=== PATIENT | male | born 1945 | race Hispanic/Latino ===

== ENCOUNTER 2017-08-15 10:24 | Day surgery (SDC) | payer MEDICARE ==
[~2017-08-15 10:24] MED LIST: ANCEF/STERILE WATER 2 GM/20 ML 2 GM/20 ML SYRINGE IV NR; NACL 0.9% 1000 ML 1,000 ML IV SCH
[2017-08-15] MEDS ORDERED: NACL BACTERIOSTATIC INFILTRATI ONE (10:48)
[2017-08-15] MEDS ORDERED: NEO SYNEPHRINE/NS Syringe(OR USE) IV ONE (11:00)
[2017-08-15 11:41] LABS: Calcium 9.2 mg/dL (8.4-10.2); Chloride 94.9 mmol/L (98-107); Potassium 4.7 mmol/L (3.6-5.0)
[2017-08-15 11:42] LABS: Basophils % (Auto) 0.9 % (0.0-1.8); Eosinophils % (Auto) 3.8 % (0.0-4.3); Hematocrit 29.1 % (35.5-45.6); Hemoglobin 9.9 gm/dl (11.8-15.2); Mean Corpuscular HGB Conc 34 % (32-34); Mean Corpuscular Hemoglobin 32 pg (28-32); Mean Corpuscular Volume 93 fl (84-94); Platelet Count 242 K/mm3 (140-440); Red Blood Count 3.12 M/mm3 (3.65-5.03); Red Cell Distribution Width 14.4 % (13.2-15.2); White Blood Count 6.8 K/mm3 (4.5-11.0)
[2017-08-15 11:44] LABS: INR 1.03 (0.87-1.13)
--- NOTE | 2017-08-15 12:08 | Anesthesia Consultation ---
Anesthesia Consult and Med Hx Date of service: 08/15/17 - Airway Anesthetic Teeth Evaluation: Good ROM Head & Neck: Adequate Mental/Hyoid Distance: Adequate Mallampati Class: Class II Intubation Access Assessment: Probably Good - Pulmonary Exam CTA: Yes - Cardiac Exam Cardiac Exam: RRR - Pre-Operative Health Status ASA Pre-Surgery Classification: ASA3 Proposed Anesthetic Plan: General, MAC - Cardiovascular System Hx Hypertension: Yes (X 12 YRS) - Central Nervous System Hx Back Pain: No Hx Psychiatric Problems: No - Endocrine Hx Renal Disease: Yes (gout, BPH) Hx End Stage Renal Disease: Yes - Other Systems Hx Alcohol Use: Yes (2 BEERS PER DAY) Hx Cancer: Yes (CLL)
--- NOTE | 2017-08-15 12:09 | Anesthesia Day of Surgery ---
Anesthesia Day of Surgery - Day of Surgery Patient Examined: Yes Patient H&P Reviewed: Yes Patient is NPO: Yes
[2017-08-15] MEDS ORDERED: DILAUDID IV PRN (12:11)
[2017-08-15] MEDS ORDERED: ZOFRAN IV PRN (12:11)
[2017-08-15] MEDS ORDERED: PERCOCET 5/325 PO PRN (12:11)
[2017-08-15] MEDS ORDERED: PEPCID PO SCH (13:00)
[2017-08-15] MEDS ORDERED: VERSED IV NR (13:00)
[2017-08-15] MEDS ORDERED: XYLOCAINE MPF 2% ONE (13:43)
[2017-08-15] MEDS ORDERED: SUBLIMAZE ONE (13:44)
[2017-08-15] MEDS ORDERED: DIPRIVAN 10 MG/ML IV ONE (13:44)
[2017-08-15] MEDS ORDERED: HEPARIN 10,000 UNITS/10 ML ONE (13:45)
[2017-08-15] MEDS ORDERED: NACL 0.9% 500 ML 500 ML ONE (13:45)
[2017-08-15] MEDS ORDERED: HEPARIN ONE (13:45)
[2017-08-15] MEDS ORDERED: ePHEDrine SULFATE ONE (14:45)
[2017-08-15] MEDS ORDERED: NACL 0.9% IR ONE (14:57)
[2017-08-15] MEDS ORDERED: HEPARIN 10,000 UNITS/10 ML 2,000 UNIT in NACL 0.9% 500 ML 500 ML IR ONE (14:58)
[2017-08-15] MEDS ORDERED: MARCAINE 0.5% INFILTRATI ONE ×2 (15:44→15:52)
[2017-08-15] MEDS ORDERED: ZOFRAN ONE (16:29)
[2017-08-15] MEDS ORDERED: HEPARIN IV ONE (16:36)
--- NOTE | 2017-08-15 16:56 | Short Stay Summary ---
Short Stay Documentation Date of service: 08/15/17 - History H&P: obtained from office - Allergies and Medications Current Medications: Allergies aspirin Adverse Reaction (Verified 08/10/17 11:15) Hives Home Medications Medication Instructions Recorded Confirmed Last Taken Type Colchicine [Colcrys] 0.6 mg PO PRN PRN 02/20/16 08/15/17 08/14/17 History Simvastatin [Zocor TAB] 40 mg PO QHS #30 tablet 06/15/17 08/15/17 08/14/17 Rx hydrALAZINE [Apresoline TAB] 100 mg PO TID #90 tab 06/15/17 08/15/17 08/15/17 08 :30 Rx Active Medications Famotidine (Pepcid) 20 mg PO PREOP MORRIS Stop: 08/15/17 23:01 Last Admin: 08/15/17 12:20 Dose: 20 mg Hydromorphone HCl (Dilaudid) 0.25 mg IV Q10MIN PRN PRN Reason: Pain, Moderate (4-6) Stop: 08/18/17 12:12 Cefazolin Sodium (Ancef/Sterile Water 2 Gm/20 Ml) 2 gm in 20 mls @ 80 mls/hr IV PREOP NR PRN Reason: Protocol Stop: 08/15/17 23:59 Sodium Chloride (Nacl 0.9% 1000 Ml) 1,000 mls @ 42 mls/hr IV DIRECT MORRIS Last Admin: 08/15/17 11:10 Dose: 42 mls/hr Midazolam HCl (Versed) 2 mg IV PREOP NR Stop: 08/15/17 23:59 Last Admin: 08/15/17 12:20 Dose: 2 mg - Brief post op/procedure progress note Date of procedure: 08/15/17 Pre-op diagnosis: renal failure Post-op diagnosis: same Procedure: left desire AVF creation right IJ permcath exchange Anesthesia: GETA Findings: permcath site skin erosion Surgeon: DUNG UGARTE Estimated blood loss: minimal Pathology: none Condition: stable - Disposition Condition at discharge: Good Disposition: DC-01 TO HOME OR SELFCARE Short Stay Discharge Plan Diet: renal Wound: open to air, other (leep dressing over permcath) Special Instructions: no heavy lifting (left arm) Follow up with: MARKEL BEDOYA MD [Primary Care Provider] - 7 Days DUNG UGARTE DO [Staff Physician] - 14 Days Prescriptions: Acetaminophen/Codeine [Tylenol /Codeine # 3 tab] 1 tab PO Q6H PRN #20 tab PRN Reason: Pain, Moderate (4-6)
--- NOTE | 2017-08-15 17:12 | Operative Report ---
Operative Report Operative Report: Operative note: Date: 11/13/2016 Preoperative diagnosis: End-stage renal disease Postoperative diagnosis: Same. Operation: creation of left Sergei AV fistula. Right IJ PermCath exchange Surgeon: Halina Banks. Asst.: none Anesthesia: Gen. EBL: Minimal Findings: Infected side of her permacath-with eroded skin Indications: 71-year-old male had nephrectomy done and developed renal failure afterwards. Patient was on dialysis via PermCath and came for permanent access creation. Patient had been performed in our office and showed that had good cephalic vein on the left side which is nondominant suitable for Sergei AV fistula creation. Patient was sent for the procedure, however he came to my office with skin erosion over his PermCath site. Patient was admitted to have PermCath change also. Patient was explained all risks, benefits and alternatives of procedures and he agreed to proceed and signed informed consents. Operative details: The ultrasound was performed identifying cephalic vein. It was compressible is good size throughout its length from the wrist level. Incision was made between the distal part of cephalic vein and radial artery. Initially I dissected around cephalic vein mobilizing it, then dissected the radial artery. Cephalic vein was transected distally and was ligated with silk. It was irrigated with heparinized saline with olive-tipped syringe. Patient was heparinozed. Distal and proximal control for radial artery was gained. Arteriotomy was created with 11 blade and extended with Murrell scissors. Anastomosis was created was running 6-0 Prolene. When the artery was unclamped there was palpable radial pulse and thrill in the cephalic vein. Hemostasis was achieved with electrocautery and wound was closed in 2 layers with 3-0 Vicryl and 4-0 Monocryl. Dermabond glue applied. Needle and sponge counts were correct 2. The procedure was devoted to PermCath exchange. He is right chest PermCath was prepped and draped in a sterile fashion since skin was eroding at the exit site , decision was made to create the new tunnel. The incision was made over close to IJ entrance site over catheter. It was dissected and taken to hemostat. It was cut distally and the polyp was removed from the exit site. Wire was inserted into one of the ports of the residual PermCath and guided into the IVC under fluoroscopic guidance. Then residual PermCath was removed. Peel-away sheath was inserted over guidewire. Next, tunnel was created. Then in the dilator with wire were removed and PermCath was inserted in the peel-away sheath. Catheter was positioned in the SVC atrial junction. It was tunneled outside and Campos bolus connected. The catheter was flushed, both ports were with good blood return and flushed easily. Sterile dressing was applied and the catheter was secured to skin with 4-0 nylon stitches. Patient tolerated procedure well and was transferred to PACU in stable condition.
[2017-08-15 18:19] VITALS: BP 145/66
--- NOTE | 2017-08-16 07:20 | Fluoroscopy Report ---
Single fluoroscopic image for evaluation of large bore right venous catheter position: Findings: The tip of the catheter is noted in mid superior vena cava. No visualized pneumothorax. Impression: Stable right venous catheter.
== END 2017-08-15 10:25 | disposition home or self-care (01) ==
LOC: OR 10:24
PROVIDERS: ATTEND Surgery Vascular Surgery
DX: I12.0 Hypertensive chronic kidney disease with stage 5 chronic kidney disease or end stage renal disease (principal); N18.6 End stage renal disease; E78.00 Pure hypercholesterolemia, unspecified; N40.0 Benign prostatic hyperplasia without lower urinary tract symptoms; M10.9 Gout, unspecified; C91.10 Chronic lymphocytic leukemia of B-cell type not having achieved remission; Z88.0 Allergy status to penicillin; Z79.899 Other long term (current) drug therapy; Z90.5 Acquired absence of kidney
CPT/HCPCS: 36415 ×2; 36558; 36589; 36821; 77001 ×2; 80048 ×2; 85025 ×2; 85610 ×2; C1750; C1769; J0690; J1644; J2250; J2370; J2405; J2704; J3010; J7030; J7040

== ENCOUNTER 2017-10-27 13:39 | Outpatient (CLI) | payer MEDICARE ==
--- NOTE | 2017-10-30 11:49 | PET Report ---
PET/CT:10/27/17 13:39:00 CLINICAL: Renal carcinoma restaging. RADIOPHARMACEUTICAL: 15.57mCi F18-FDG. COMPARISON: 08/11/17 and 03/25/16 PET/CT TECHNIQUE- Following intravenous injection of F-18 FDG and an approximately 60 minute uptake period, CT and PET images from the mid skull to the upper thighs were acquired with the patient in the fasted state. No contrast was administered. The CT protocol used for this PET CT study is designed for attenuation correction and anatomic localization of PET abnormalities. This supervisor finishing department CT is not desired to produce and cannot replace, ibied-kj-cvr-art diagnostic CT scans with specific imaging protocols for different body parts and indications. Plasma glucose at the time of this test: 79g/dl. The standardized uptake values (SUV) are normalized to patient body weight and indicate the highest activity concentration (SUV max) in a given disease site. FINDINGS: Brain--Physiologic FDG uptake in the visualized regions of the brain. Neck--Physiologic FDG uptake . Chest--Physiologic FDG uptake in mediastinal blood pool and myocardium. Lungs--Too numerous to count bilateral multilobar noncalcified FDG avid and not FDG lung nodules. The largest is in the right lower lobe and measures 1.9 1.7 cm with SUV 5.8. The previously described 7 mm left lower lobe lung nodule now measures 1.6 x 1.6 cm with a sheath the 5.4 x 1.6 cm x 1.6 cm right upper lobe nodule demonstrates minimal FDG uptake SUV 2.1. Pleura/pericardium--No abnormal uptake. Thoracic nodes--A single focus of abnormal FDG uptake in the right pulmonary hilum this should be 3.9. Hepatobiliary--No abnormal uptake. Liver background SUV mean, as a reference for comparing FDG studies, is 2.7 compared to 4.0 on the last exam. No liver mass. Spleen--No abnormal uptake. Pancreas--No abnormal uptake. Adrenal Glands--No abnormal uptake. Kidneys/Ureters/Bladder--No abnormal uptake. Abdominopelvic Nodes--Increased FDG uptake and increased soft tissue mass in the right retroperitoneum is at the inferior aspect of the right diaphragmatic pedro pablo. A 4 cm soft tissue mass with SUV 8.7 compared to 7.5. A new FDG avid midline retroperitoneal lymph node between the aorta and the inferior vena cava measures 1.5 x 1.1 cm with a sheath the 4.0. Bowel/Peritoneum/Mesentery--No abnormal uptake. Pelvic organs--No abnormal uptake. The urinary bladder is small and unremarkable. Bones/Soft Tissues--No abnormal uptake. No suspicious bone lesion. IMPRESSION- Progression of disease with too numerous to count bilateral multilobar pulmonary metastases, right pulmonary hilar metastasis, increased size of a right retroperitoneal retrocrural metastasis and a new FDG avid retroperitoneal periaortic lymph node.
== END 2017-10-27 13:40 | disposition home or self-care (01) ==
LOC: PET 13:39
PROVIDERS: ATTEND Internal Medicine Hematology & Oncology
DX: C78.6 Secondary malignant neoplasm of retroperitoneum and peritoneum (principal); C78.02 Secondary malignant neoplasm of left lung; C78.01 Secondary malignant neoplasm of right lung; C64.9 Malignant neoplasm of unspecified kidney, except renal pelvis; D47.2 Monoclonal gammopathy; C85.90 Non-Hodgkin lymphoma, unspecified, unspecified site; R91.1 Solitary pulmonary nodule; Z79.899 Other long term (current) drug therapy
CPT/HCPCS: 78815; 82962; A9552

== ENCOUNTER 2017-11-09 07:11 | Day surgery (SDC) | payer MEDICARE ==
[2017-11-09] MEDS ORDERED: SUBLIMAZE IV NR (07:37)
[2017-11-09] MEDS ORDERED: VERSED IV NR (07:37)
[2017-11-09 08:00] LABS: Basophils % (Auto) 0.8 % (0.0-1.8); Eosinophils # (Auto) 0.2 K/mm3 (0.0-0.4); Eosinophils % (Auto) 5.3 % (0.0-4.3); Hematocrit 33.6 % (35.5-45.6); Hemoglobin 11.3 gm/dl (11.8-15.2); Lymphocytes # (Auto) 0.7 K/mm3 (1.2-5.4); Lymphocytes % (Auto) 17.1 % (13.4-35.0); Mean Corpuscular HGB Conc 34 % (32-34); Mean Corpuscular Hemoglobin 32 pg (28-32); Mean Corpuscular Volume 95 fl (84-94); Monocytes # (Auto) 0.6 K/mm3 (0.0-0.8); Platelet Count 123 K/mm3 (140-440); Red Blood Count 3.53 M/mm3 (3.65-5.03); Red Cell Distribution Width 14.1 % (13.2-15.2)
[2017-11-09 08:14] LABS: Calcium 9.3 mg/dL (8.4-10.2)
[2017-11-09 08:16] LABS: INR 0.9 (0.87-1.13)
[2017-11-09 08:17] LABS: Partial Thromboplastin Time 28.1 Sec. (24.2-36.6)
[2017-11-09] MEDS ORDERED: NACL 0.9% 500 ML 0 ML ONE (10:44)
--- NOTE | 2017-11-09 11:56 | Cat Scan Report ---
CT BIOPSY LUNG RIGHT HISTORY: Non-Hodgkin's lymphoma, renal cancer. DESCRIPTION OF PROCEDURE: Informed consent was obtained. Sterile technique was utilized. 1% lidocaine for skin anesthesia. Moderate sedation was accomplished with Versed and fentanyl. The patient was sedated for 20 minutes. Independent cardiorespiratory monitoring by RN. Intra-observer time of [address] guidance, a 19-gauge introducer needle was advanced to the leading edge of a 2.0 cm mass in the posterior right lower lobe. 2 separate 2.2 cm 20-gauge core biopsies were obtained. Pathology was present to handle the samples. No complications. IMPRESSION: Successful CT-guided biopsy of a 2.0 cm mass in the right lower lobe.
--- NOTE | 2017-11-09 14:31 | XRay Report ---
AP CHEST: HISTORY: Lung mass, recent CT-guided biopsy Recent CT-guided biopsy of a right lower lobe mass was performed. There is no evidence for pneumothorax. Scattered bilateral pulmonary nodules are again noted. No infiltrate or pleural fluid. Heart size is within normal limits. Right IJ venous catheter terminates in the right atrium. IMPRESSION: No pneumothorax.
[2017-11-09 14:36] VITALS: BP 155/90
== END 2017-11-09 15:00 | disposition home or self-care (01) ==
LOC: CATHLABREC 07:11
PROVIDERS: ATTEND Internal Medicine Hematology & Oncology
DX: C85.80 Other specified types of non-Hodgkin lymphoma, unspecified site (principal); C64.9 Malignant neoplasm of unspecified kidney, except renal pelvis
CPT/HCPCS: 32405; 36415; 71045; 77012; 80048; 85025; 85610; 85730; 88104; 88305; 88342; 99156; J2250; J3010; J7040

== ENCOUNTER 2017-12-11 09:19 | Emergency (ER) | payer MEDICARE ==
[2017-12-11 09:29] VITALS: BP 153/89
[2017-12-11 10:14] LABS: Calcium 9.6 mg/dL (8.4-10.2)
--- NOTE | 2017-12-11 10:40 | XRay Report ---
ROUTINE CHEST, TWO VIEWS: HISTORY: Coughing up blood, hemoptysis. Multiple bilateral pulmonary masses are identified which have increased by at least 25% since 11/09/17 exam. There is no for consolidation, pleural effusion or pneumothorax. Normal heart size and pulmonary vascularity. The bony structures are grossly intact. Right IJ dual-lumen catheter has been removed. IMPRESSION: Increased bilateral pulmonary masses since 11/09/17. No new acute process noted.
[2017-12-11 11:06] LABS: Hematocrit 32.9 % (35.5-45.6); Hemoglobin 11.3 gm/dl (11.8-15.2); Mean Corpuscular HGB Conc 34 % (32-34); Mean Corpuscular Hemoglobin 32 pg (28-32); Mean Corpuscular Volume 94 fl (84-94); Platelet Count 187 K/mm3 (140-440); Red Blood Count 3.48 M/mm3 (3.65-5.03); Red Cell Distribution Width 14.3 % (13.2-15.2)
[2017-12-11 11:57] LABS: Calcium 9.6 mg/dL (8.4-10.2)
--- NOTE | 2017-12-11 13:27 | Emergency Department Report ---
ED General Adult HPI - General Chief complaint: Upper Respiratory Infection Stated complaint: COUGHING UP BLOOD Time Seen by Provider: 12/11/17 11:40 Source: patient, family Mode of arrival: Ambulatory Limitations: No Limitations - History of Present Illness Initial comments: States that at approximately 9 AM he coughed up a quarter teaspoon of blood. He has no subsequent episode. He has a history of non-small cell carcinoma of the lung. He has an appointment to see his oncologist tomorrow. I believe they were planning to start a biological. He is not currently on chemotherapy nor has he been previously cycled. He states this first time he has had any hemoptysis. He denies any shortness of breath or chest pain. He's had no leg pain or swelling. He's had no recent travel. He is completely asymptomatic at this time. Patient has a history of end-stage renal disease on dialysis. His last session was Tuesday. -: This morning Associated Symptoms: denies other symptoms - Related Data Home Medications Medication Instructions Recorded Confirmed Last Taken Colchicine [Colcrys] 0.6 mg PO PRN PRN 02/20/16 11/09/17 08/14/17 Allopurinol 100 mg PO DAILY 11/09/17 11/09/17 11/08/17 100mg hydrALAZINE [Apresoline TAB] 25 mg PO TID 11/09/17 11/09/17 11/06/17 25mg Previous Rx's Medication Instructions Recorded Last Taken Type Simvastatin [Zocor TAB] 40 mg PO QHS #30 tablet 06/15/17 11/08/17 Rx 40mg Allergies Allergy/AdvReac Type Severity Reaction Status Date / Time aspirin AdvReac Hives Verified 08/10/17 11:15 ED Review of Systems ROS: Stated complaint: COUGHING UP BLOOD Other details as noted in HPI Constitutional: denies: chills, fever Eyes: denies: eye pain, eye discharge, vision change ENT: denies: ear pain, throat pain Respiratory: see HPI, cough (1 episode of hemoptysis only and no persistent cough). denies: shortness of breath, wheezing Cardiovascular: denies: chest pain, palpitations Endocrine: no symptoms reported Gastrointestinal: denies: abdominal pain, nausea, diarrhea Genitourinary: denies: urgency, dysuria Musculoskeletal: denies: back pain, joint swelling, arthralgia Skin: denies: rash, lesions Neurological: denies: headache, weakness, paresthesias Psychiatric: denies: anxiety, depression Hematological/Lymphatic: denies: easy bleeding, easy bruising ED Past Medical Hx - Past Medical History Hx Hypertension: Yes (X 12 YRS) Hx Congestive Heart Failure: No Hx Diabetes: No Hx Renal Disease: Yes (gout, BPH) Hx of Cancer: Yes Hx Asthma: No Hx COPD: No Hx HIV: No Additional medical history: End-stage renal last dialysis was Tuesday - Surgical History Additional Surgical History: Prostate surgery for a blockage (BPH). - Social History Smoking Status: Never Smoker Substance Use Type: None - Medications Home Medications: Home Medications Medication Instructions Recorded Confirmed Last Taken Type Colchicine [Colcrys] 0.6 mg PO PRN PRN 02/20/16 11/09/17 08/14/17 History Simvastatin [Zocor TAB] 40 mg PO QHS #30 tablet 06/15/17 11/09/17 11/08/17 Rx 40mg Allopurinol 100 mg PO DAILY 11/09/17 11/09/17 11/08/17 History 100mg hydrALAZINE [Apresoline TAB] 25 mg PO TID 11/09/17 11/09/17 11/06/17 History 25mg ED Physical Exam - General Limitations: No Limitations General appearance: alert, in no apparent distress - Head Head exam: Present: atraumatic, normocephalic - Eye Eye exam: Present: normal appearance. Absent: scleral icterus - ENT ENT exam: Present: normal exam, mucous membranes moist - Neck Neck exam: Present: normal inspection. Absent: tenderness, meningismus - Respiratory Respiratory exam: Present: normal lung sounds bilaterally. Absent: respiratory distress - Cardiovascular Cardiovascular Exam: Present: regular rate, normal rhythm. Absent: systolic murmur, diastolic murmur, rubs, gallop - GI/Abdominal GI/Abdominal exam: Present: soft, normal bowel sounds. Absent: distended, tenderness, guarding, rebound, rigid - Rectal Rectal exam: Present: deferred - Extremities Exam Extremities exam: Present: normal inspection - Back Exam Back exam: Present: normal inspection - Neurological Exam Neurological exam: Present: alert, oriented X3, CN II-XII intact, normal gait. Absent: motor sensory deficit - Psychiatric Psychiatric exam: Present: normal affect, normal mood - Skin Skin exam: Present: warm, dry, intact, normal color. Absent: rash ED Course Vital Signs 12/11/17 09:23 Temperature 97.6 F Pulse Rate 100 H Respiratory 20 Rate Blood Pressure 153/89 O2 Sat by Pulse 99 Oximetry - Reevaluation(s) Reevaluation #1: Patient had an apparent laboratory error on his EPIC INTERFACE ANALYST. This had to be repeated. I discussed the patient's disposition with him. He was advised to come back to the emergency department should he have any further episode and we would put him in the hospital for observation. He was completely asymptomatic at this time. For some reason he did not wait for his discharge paperwork. He has an appointment to see his oncologist tomorrow. 12/11/17 13:31 ED Medical Decision Making - Lab Data Result diagrams: 12/11/17 09:45 12/11/17 10:24 Laboratory Results - last 24 hr 12/11/17 12/11/17 12/11/17 09:45 09:45 10:24 WBC 5.0 RBC 3.48 L Hgb 11.3 L Hct 32.9 L MCV 94 MCH 32 MCHC 34 RDW 14.3 Plt Count 187 Sodium 141 Potassium 4.4 Chloride 92.3 L Carbon Dioxide 3 L* Anion Gap 50 BUN 49 H Creatinine 8.3 H Estimated GFR 6 BUN/Creatinine Ratio 6 Glucose 2 L* 122 H Calcium 9.6 12/11/17 10:24 WBC RBC Hgb Hct MCV MCH MCHC RDW Plt Count Sodium 141 Potassium 4.7 Chloride 92.6 L Carbon Dioxide 30 D Anion Gap 23 BUN 49 H Creatinine 8.4 H Estimated GFR 6 BUN/Creatinine Ratio 6 Glucose 121 H Calcium 9.6 - Radiology Data interpreted by me: Extensive non-small cell carcinoma of the lung bilaterally Critical care attestation.: If time is entered above; I have spent that time in minutes in the direct care of this critically ill patient, excluding procedure time. ED Disposition Clinical Impression: ESRD (end stage renal disease) on dialysis, Non-small cell carcinoma of lung, Hemoptysis Disposition: OP ADMIT IP TO THIS HOSP Is pt being admited?: No Does the pt Need Aspirin: No Condition: Stable Instructions: Chronic Kidney Disease (ED), Acute Hemoptysis (ED) Additional Instructions: Return a further episode. See her oncologist and band lining bander tomorrow report to them what happened. Referrals: MARKEL BEDOYA MD [Primary Care Provider] - 3-5 Days usual, oncologist [Other] - 24 Hours Time of Disposition: 13:33
== END 2017-12-11 13:35 | disposition admitted as inpatient to this hospital (09) ==
LOC: ED 09:19
DX: C34.90 Malignant neoplasm of unspecified part of unspecified bronchus or lung (principal); I12.0 Hypertensive chronic kidney disease with stage 5 chronic kidney disease or end stage renal disease; N18.6 End stage renal disease; M10.9 Gout, unspecified; Z99.2 Dependence on renal dialysis
CPT/HCPCS: 36415; 71046; 80048; 82947; 85027

== ENCOUNTER 2018-03-02 12:06 | Outpatient (CLI) | payer MEDICARE ==
--- NOTE | 2018-03-06 15:37 | PET Report ---
PET/CT:03/02/18 12:06:00 CLINICAL: Non-Hodgkin's lymphoma, renal cancer restaging RADIOPHARMACEUTICAL: 15.34mCi F18-FDG. COMPARISON: 10/27/17 PET/CT TECHNIQUE- Following intravenous injection of F-18 FDG and an approximately 60 minute uptake period, CT and PET images from the mid skull to the upper thighs were acquired with the patient in the fasted state. No contrast was administered. The CT protocol used for this PET CT study is designed for attenuation correction and anatomic localization of PET abnormalities. This mat gauger CT is not desired to produce and cannot replace, bqjuw-np-mwq-art diagnostic CT scans with specific imaging protocols for different body parts and indications. Plasma glucose at the time of this test: 108g/dl. The standardized uptake values (SUV) are normalized to patient body weight and indicate the highest activity concentration (SUV max) in a given disease site. FINDINGS: Brain--Physiologic FDG uptake in the visualized regions of the brain. Neck--Physiologic FDG uptake in mucosal structures. No lymphadenopathy of the neck. Chest--Physiologic FDG uptake in mediastinal blood pool and myocardium. Lungs--Too many to count noncalcified multilobar lung nodules and masses which have increased in size and number since the last exam. The most FDG avid mass is a left lower lobe 3.2 x 2.5 cm mass with SUV 19.0. Pleura/pericardium--No abnormal uptake. No pleural effusion. Thoracic nodes--No abnormal uptake. Hepatobiliary--No abnormal uptake. Liver background SUV mean, as a reference for comparing FDG studies, is 3.0 compared to 2.6 on the last exam. Benign hepatic cysts and a liver mass. Spleen--No abnormal uptake. Stable mild splenic enlargement the spleen measuring 12.2 cm maximum. Pancreas--No abnormal uptake. Adrenal Glands--No abnormal uptake. Kidneys/Ureters/Bladder--status post right nephrectomy with a larger FDG avid mass in the postoperative bed. It measures approximately 7 x 6.0 x 3.0 cm with SUV 13.6 compared to 4 cm maximum and SUV 8.7 on the last exam. Abdominopelvic Nodes--The previously described aortocaval lymph node measures 2.3 x 2.2 cm previously the 13.8 compared to 1.5 x 1.1 cm and SUV 4.0 on the last exam. Bowel/Peritoneum/Mesentery--No abnormal uptake. Pelvic organs--No abnormal uptake. Bones/Soft Tissues--No abnormal uptake. No suspicious bone lesions. IMPRESSION- 1. Progression of disease with increased size, number and FDG uptake in too numerous to count pulmonary metastases. 2. Increased size and increased FDG uptake in recurrent tumor in the right retroperitoneum. 3. Increased size and FDG uptake in an aortocaval lymph node.
== END 2018-03-02 12:07 | disposition home or self-care (01) ==
LOC: PET 12:06
PROVIDERS: ATTEND Internal Medicine Hematology & Oncology
DX: C85.90 Non-Hodgkin lymphoma, unspecified, unspecified site (principal); C64.9 Malignant neoplasm of unspecified kidney, except renal pelvis; D47.2 Monoclonal gammopathy; N18.6 End stage renal disease; I12.0 Hypertensive chronic kidney disease with stage 5 chronic kidney disease or end stage renal disease; R79.89 Other specified abnormal findings of blood chemistry; Z90.5 Acquired absence of kidney
CPT/HCPCS: 78815; 82962; A9552

== ENCOUNTER 2018-05-11 11:10 | Outpatient (CLI) | payer MEDICARE ==
--- NOTE | 2018-05-12 14:02 | PET Report ---
PET/CT:05/11/18 11:10:00 CLINICAL: Non-Hodgkin's lymphoma and renal cancer restaging RADIOPHARMACEUTICAL: 12.8mCi F18-FDG. COMPARISON: 03/02/18 PET/CT TECHNIQUE- Following intravenous injection of F-18 FDG and an approximately 60 minute uptake period, CT and PET images from the mid skull to the upper thighs were acquired with the patient in the fasted state. No contrast was administered. The CT protocol used for this PET CT study is designed for attenuation correction and anatomic localization of PET abnormalities. This grey tender CT is not desired to produce and cannot replace, mhext-ei-fih-art diagnostic CT scans with specific imaging protocols for different body parts and indications. Plasma glucose at the time of this test: 87g/dl. The standardized uptake values (SUV) are normalized to patient body weight and indicate the highest activity concentration (SUV max) in a given disease site. FINDINGS: Brain--Physiologic FDG uptake in the visualized regions of the brain. Neck--Physiologic FDG uptake in mucosal structures. Chest--Physiologic FDG uptake in mediastinal blood pool and myocardium. Lungs--Resolution of FDG uptake in too numerous to count bilateral multilobar pulmonary nodules. Most nodules have decreased in size and a few have developed more calcifications. The dominant right upper lobe nodule is contiguous to the pleura measures 2.4 x 2.0 cm compared to 2.6 x 2.1 cm. The dominant left lower lobe nodule is contiguous to the pleura measures 2.1 x 1.7 cm compared to 2.8 x 2.2 cm. No new lung nodules or masses. Pleura/pericardium--No abnormal uptake. No pleural effusion. Thoracic nodes--No abnormal uptake. Hepatobiliary--No abnormal uptake. Liver background SUV mean, as a reference for comparing FDG studies, is 3.4 compared to 3.0 on the last exam. No liver mass. Spleen--No abnormal uptake. Stable mild splenomegaly. Pancreas--No abnormal uptake. Adrenal Glands--No abnormal uptake. Kidneys/Ureters/Bladder--Status post right nephrectomy. The previously described FDG avid mass in the right retroperitoneum has decreased in size and measures 5.5 x 2.1 cm with SUV 3.7 compared to 6.1 x 3.1 cm and SUV 13.6. Abdominopelvic Nodes--No abnormal uptake. Bowel/Peritoneum/Mesentery--No abnormal uptake. Pelvic organs--No abnormal uptake. Bones/Soft Tissues--No abnormal uptake. No suspicious bone lesions. IMPRESSION- 1. Positive response to treatment with decreased size of multilobar pulmonary metastases and resolution of FDG uptake in all of the pulmonary nodules. 2. Decreased size and decreased FDG uptake in the right retroperitoneal mass and in the aortocaval lymph node.
== END 2018-05-11 11:11 | disposition home or self-care (01) ==
LOC: PET 11:10
PROVIDERS: ATTEND Internal Medicine Hematology & Oncology
DX: C85.90 Non-Hodgkin lymphoma, unspecified, unspecified site (principal); R91.8 Other nonspecific abnormal finding of lung field; R16.1 Splenomegaly, not elsewhere classified; I12.0 Hypertensive chronic kidney disease with stage 5 chronic kidney disease or end stage renal disease; N18.6 End stage renal disease; E78.00 Pure hypercholesterolemia, unspecified; M10.9 Gout, unspecified; Z90.5 Acquired absence of kidney; Z88.6 Allergy status to analgesic agent
CPT/HCPCS: 78815; A9552

== ENCOUNTER 2018-12-28 11:46 | Outpatient (CLI) | payer MEDICARE ==
--- NOTE | 2019-01-01 08:41 | PET Report ---
PET/CT:12/28/18 11:46:00 CLINICAL: Non-Hodgkin's lymphoma restaging. RADIOPHARMACEUTICAL: 13.491mCi F18-FDG. COMPARISON: 09/07/18 PET/CT TECHNIQUE- Following intravenous injection of F-18 FDG and an approximately 60 minute uptake period, CT and PET images from the mid skull to the upper thighs were acquired with the patient in the fasted state. No contrast was administered. The CT protocol used for this PET CT study is designed for attenuation correction and anatomic localization of PET abnormalities. This live study manager CT is not desired to produce and cannot replace, [id number]-[id number]-art diagnostic CT scans with specific imaging protocols for different body parts and indications. Plasma glucose at the time of this test: 74g/dl. The standardized uptake values (SUV) are normalized to patient body weight and indicate the highest activity concentration (SUV max) in a given disease site. FINDINGS: Brain--Physiologic FDG uptake in the visualized regions of the brain. Neck--Physiologic FDG uptake in mucosal structures. No mass or lymphadenopathy. Chest--Physiologic FDG uptake in mediastinal blood pool and myocardium. Lungs--No abnormal uptake. Too numerous to count bilateral multilobar non-FDG avid partially calcified lung nodules have increased slightly in size. The dominant right upper lobe or base nodule measures 2.5 x 2.3 cm compared to 2.4 x 2.0 cm. The dominant right lower lobe pleural-based nodule measures 2.6 x 2.4 cm compared to 2.4 x 2.3 cm. No new nodule or mass. Pleura/pericardium--No abnormal uptake. Thoracic nodes--No abnormal uptake. Hepatobiliary--No abnormal uptake. Liver background SUV mean, as a reference for comparing FDG studies, is 2.6 compared to 2.7 on the last exam. Benign hepatic cysts. No liver mass. Spleen--No abnormal uptake. Spleen is normal size. Pancreas--No abnormal uptake. Adrenal Glands--No abnormal uptake. Kidneys/Ureters/Bladder--No abnormal uptake. Status post right nephrectomy. A small left kidney with no hydronephrosis. Benign left renal cysts. Abdominopelvic Nodes--No abnormal uptake. The right retroperitoneal non-FDG avid mass with hodan calcifications measures 5.3 x 2.5 cm compared to 4.9 x 2.1 cm on the last exam. Bowel/Peritoneum/Mesentery--No abnormal uptake. Pelvic organs--No abnormal uptake. Bones/Soft Tissues--No abnormal uptake and no suspicious bone lesions. Other findings: A fat containing right inguinal hernia is unchanged. IMPRESSION- Increased size of too numerous to count multilobar pulmonary metastases and increased size of right retroperitoneal hodan metastases. However, no new lesions.
== END 2018-12-28 11:47 | disposition home or self-care (01) ==
LOC: PET 11:46
PROVIDERS: ATTEND Internal Medicine Hematology & Oncology
DX: C78.00 Secondary malignant neoplasm of unspecified lung (principal); C64.9 Malignant neoplasm of unspecified kidney, except renal pelvis; C85.90 Non-Hodgkin lymphoma, unspecified, unspecified site; D47.2 Monoclonal gammopathy; I12.0 Hypertensive chronic kidney disease with stage 5 chronic kidney disease or end stage renal disease; N18.6 End stage renal disease; E78.00 Pure hypercholesterolemia, unspecified; K44.9 Diaphragmatic hernia without obstruction or gangrene; N28.1 Cyst of kidney, acquired; R91.8 Other nonspecific abnormal finding of lung field
CPT/HCPCS: 78815; 82962; A9552

== ENCOUNTER 2019-05-03 10:57 | Outpatient (CLI) | payer MEDICARE ==
--- NOTE | 2019-05-03 17:24 | PET Report ---
PET/CT Scan05/03/2019 Indication: C64.9,C85.90,D47.2 Restaging Technique: 14.25 mCi of F18-FDG is administered intravenously. Imaging is performed at approximately 1 hours. Glucose level is 84 mg/dl just prior to the exam. Imaging is performed from the skull base to the p roximal thighs. CT imaging is obtained for attenuation correction and anatomic localization. Comparison: PET CT scan dated 12/26/2018 Findings: There are numerous pulmonary metastatic lesions which are partially calcified. The appearance is sim ilar to the previous study. An index lesion in the right upper lobe, series 2 image 82 measures 2.4 x 2.1 cm currently and measured 2.3 x 2.2 cm previously is essentially unchanged. A second index lesio n in the left upper lobe, series 2 image 85 measures 2.1 x 1.7 cm currently and measured 1.9 x 1.8 cm previously.. The lesion in the right upper lobe measures 2.4 SUV currently and measured 2.1 SUV prev iously. The lesion in the left upper lobe measures 2.0 SUV currently and on the prior exam. No pathologic uptake is seen in the liver. Liver cysts are noted. Calcified retroperitoneal nodes in the right upper abdomen appear essentially unchanged measuring 2.5 and 2.8 cm respectively. Multiple cysts are noted in the left kidney one of which appears hyperdense and unchanged. Changes of prior right nephrectomy are noted. Calcified aortocaval node appears uncha nged There is a right inguinal hernia which contains a loop of bowel. There is no obstruction or complicat ion from this. Atherosclerotic calcifications are noted. There are small mediastinal nodes these are not pathologically enlarged and appear essentially unchanged. Impression: Pulmonary metastatic disease appears little changed when compared to the prior exam. There are cyndi us calcified or partially calcified pulmonary nodules again noted. Calcified hodan disease in the abd omen appears unchanged as well. No new neoplastic or metastatic disease is identified. There is a right inguinal hernia which was fat-containing previously and on today's examination conta ins a loop of small bowel as well as fat. No obstruction or complication is seen associated with this . Signer Name: Franc Lamb MD Signed: 05/03/2019 5:20 PM Workstation Name: [id number]
== END 2019-05-03 10:58 | disposition home or self-care (01) ==
LOC: PET 10:57
PROVIDERS: ATTEND Internal Medicine Hematology & Oncology
DX: K40.90 Unilateral inguinal hernia, without obstruction or gangrene, not specified as recurrent (principal); C78.00 Secondary malignant neoplasm of unspecified lung; N28.1 Cyst of kidney, acquired; K76.89 Other specified diseases of liver; I70.0 Atherosclerosis of aorta; D47.2 Monoclonal gammopathy; C64.9 Malignant neoplasm of unspecified kidney, except renal pelvis; C85.90 Non-Hodgkin lymphoma, unspecified, unspecified site; I10 Essential (primary) hypertension; E78.00 Pure hypercholesterolemia, unspecified
CPT/HCPCS: 78815; 82962; A9552

== ENCOUNTER 2019-07-30 10:27 | Outpatient (CLI) | payer MEDICARE ==
--- NOTE | 2019-07-30 13:33 | Magnetic Resonance Report ---
MRI BRAIN with and without IV contrast. INDICATION / CLINICAL INFORMATION: D47.2)monoclonal gammopathy./C85.90)Non-Hodgkin lymphoma, unspeci. TECHNIQUE: Multiplanar, multisequence MR images of the brain were obtained. COMPARISON: None available. FINDINGS: BRAIN / INTRACRANIAL CONTENTS: There is cerebral white matter disease, most notably involving the per iventricular regions and most consistent with microvascular angiopathy. The diffusion imaging reveals no evidence of acute infarction. The motion degrades image quality in the postcontrast sequences. Ho wever, no definitive intracranial enhancing lesions are identified to indicate metastatic disease. There is mild cerebral atrophy. The ventricular system is correspondingly appropriate in size and con figuration. No extra-axial fluid collections or significant mass effect is identified. CRANIOCERVICAL JUNCTION: No significant abnormality. VASCULAR FLOW-VOIDS: No significant abnormality. ORBITS: No significant abnormality of visualized orbits. SINUSES / MASTOIDS: There is moderate mucosal thickening within the left maxillary sinus. Milder find ings are noted within the ethmoid air cells. The mastoid air cells are clear. ADDITIONAL FINDINGS: There is mild asymmetry of the visualized left at nasopharyngeal soft tissues wi thout enhancing lesions. IMPRESSION: 1. There is mild microvascular angiopathy without evidence of recent infarction or intracranial enhan cing lesions. 2. There is moderate mucosal thickening within the left maxillary sinus. Signer Name: Bryan Montalvo MD Signed: 07/30/2019 1:28 PM Workstation Name: [id number]
== END 2019-07-30 10:28 | disposition home or self-care (01) ==
LOC: MRI 10:27
PROVIDERS: ATTEND Internal Medicine Hematology & Oncology
DX: C85.90 Non-Hodgkin lymphoma, unspecified, unspecified site (principal); G31.9 Degenerative disease of nervous system, unspecified; C64.9 Malignant neoplasm of unspecified kidney, except renal pelvis; D47.2 Monoclonal gammopathy
CPT/HCPCS: 36415; 70553; 82565; 84520; A9577

== ENCOUNTER 2019-09-11 12:34 | Outpatient (CLI) | payer MEDICARE ==
--- NOTE | 2019-09-11 13:39 | XRay Report ---
CHEST 2 VIEWS INDICATION: COUGH. COMPARISON: 12/11/2017 FINDINGS: Support devices: None. Heart: Within normal limits. Lungs/pleura: Multiple bilateral pulmonary nodules and masses are again identified. No evidence for pneumonia, pleural fluid or pneumothorax. Additional findings: None. IMPRESSION: Bilateral pulmonary nodules and masses consistent with a metastatic process. No overwhelming change i s demonstrated since 12/11/2017. Signer Name: Terrence Avila Jr, MD Signed: 09/11/2019 1:34 PM Workstation Name: [id number]
== END 2019-09-11 12:35 | disposition home or self-care (01) ==
LOC: SPVIMAG 12:34
PROVIDERS: ATTEND Internal Medicine Hematology & Oncology
DX: C78.00 Secondary malignant neoplasm of unspecified lung (principal); C64.9 Malignant neoplasm of unspecified kidney, except renal pelvis; D47.2 Monoclonal gammopathy; C85.90 Non-Hodgkin lymphoma, unspecified, unspecified site
CPT/HCPCS: 71046

== ENCOUNTER 2019-11-15 10:24 | Outpatient (CLI) | payer MEDICARE ==
--- NOTE | 2019-11-15 13:44 | PET Report ---
PET/CT HISTORY: C85.90,C64.9. Restaging of lymphoma TECHNIQUE: The patient's fasting blood glucose was 99. The patient weighed 159 lbs. The patient wa s injected with 13.5 mCi of FDG in the right hand at 1051 hours and imaging was started at 1137 hours . The patient was imaged from the skull base to the thighs. All CT scans at this location are perfor med using CT dose reduction for ALARA by means of automated exposure control. Images were reviewed on a workstation. COMPARISON: 05/03/2019 FINDINGS: IMAGED BRAIN: [Physiologic FDG uptake] NECK: [Physiologic FDG uptake] MEDIASTINUM: [Physiologic FDG uptake]. Calcified mediastinal lymph nodes are unchanged and remain hy pometabolic. LUNGS: [Numerous bilateral partially calcified pulmonary nodules and masses appear stable in size an d number. These nodules remain hypometabolic with max SUV values ranging from 2.0-2.2.] HEPATOBILIARY: [Physiologic FDG uptake]. Multiple liver cysts are stable. PANCREAS: [Physiologic FDG uptake SPLEEN: [Physiologic FDG uptake] KIDNEYS/BLADDER: [Physiologic FDG uptake]. Right nephrectomy changes. The left kidney is atrophic an d contains multiple cysts. ADRENAL GLANDS: [Physiologic FDG uptake] GI/MESENTERY: [Physiologic FDG uptake]. Moderate right inguinal hernia containing fat is noted. No b owel loops are included on today's exam. PELVIC VISCERA: [Physiologic FDG uptake] LYMPH NODES: [Partially calcified right peritoneal lymph nodes and single calcified aortocaval lymph nodes are unchanged and remain hypometabolic with max SUV measuring 1.1.] OSSEOUS STRUCTURES: [Physiologic FDG uptake]. No suspicious bony lesions are detected. ADDITIONAL FINDINGS: [None] IMPRESSION: Stable findings since 05/03/2019 exam. Numerous partially calcified pulmonary lesions and a few calcif ied retroperitoneal lymph nodes are stable in size and metabolic activity. No new areas of disease ar e appreciated. Signer Name: Terrence Avila Jr, MD Signed: 11/15/2019 1:40 PM Workstation Name: [id number]
== END 2019-11-15 10:25 | disposition home or self-care (01) ==
LOC: PET 10:24
PROVIDERS: ATTEND Internal Medicine Hematology & Oncology
DX: K40.90 Unilateral inguinal hernia, without obstruction or gangrene, not specified as recurrent (principal); R91.1 Solitary pulmonary nodule; D47.2 Monoclonal gammopathy; C64.9 Malignant neoplasm of unspecified kidney, except renal pelvis; C85.90 Non-Hodgkin lymphoma, unspecified, unspecified site; I10 Essential (primary) hypertension; Z79.899 Other long term (current) drug therapy
CPT/HCPCS: 78815; 82962; A9552

== ENCOUNTER 2019-11-28 11:11 | Observation (INO) | payer MEDICARE ==
--- NOTE | 2019-11-28 12:32 | Emergency Department Report ---
ED Palpitations HPI - General Chief Complaint: Arrhythmia/Palpitations Stated Complaint: ELEVATED HEART RATE X2 DAYS Time Seen by Provider: 11/28/19 11:42 Source: patient, EMS Mode of arrival: Stretcher Limitations: No Limitations - History of Present Illness Initial Comments: 74-year-old male, history of ESRD (Tuesday dialysis), metastatic cancer currently on immunotherapy, presents to ED from dialysis clinic for tachycardia. Patient had an elevated heart rate, and was therefore unable to be dialyzed. Patient reports his heart rate was elevated 2 days ago at dialysis as well, but states he was fully dialyzed. He reports a history of irregular heartbeat in the past which was evaluated by Dr. Mendiola. Patient states that this time he was briefly on blood thinners, however he does not know the name of it. But states he was since taken off the blood thinners. Patient denies any sensation of palpitations, denies chest pain or shortness of breath. Patient has no complaints. Can Sealer: Dr Oseguera - Related Data Home Medications Medication Instructions Recorded Confirmed Last Taken Colchicine [Colcrys] 0.6 mg PO PRN PRN 02/20/16 11/09/17 08/14/17 allopurinoL [Allopurinol] 100 mg PO DAILY 11/09/17 11/09/17 11/08/17 100 mg hydrALAZINE [Apresoline TAB] 25 mg PO TID 11/09/17 11/09/17 11/06/17 25 mg Previous Rx's Medication Instructions Recorded Last Taken Type Simvastatin [Zocor TAB] 40 mg PO QHS #30 tablet 06/15/17 11/08/17 Rx 40 mg Allergies Allergy/AdvReac Type Severity Reaction Status Date / Time aspirin AdvReac Hives Verified 11/28/19 11:38 ED Review of Systems ROS: Stated complaint: ELEVATED HEART RATE X2 DAYS Other details as noted in HPI ED Past Medical Hx - Past Medical History Previous Medical History?: Yes Hx Hypertension: Yes (X 12 YRS) Hx Congestive Heart Failure: No Hx Diabetes: No Hx Renal Disease: Yes (gout, BPH) Hx of Cancer: Yes (kidney) Hx Asthma: No Hx COPD: No Hx HIV: No Additional medical history: ESRD/MWF - Surgical History Additional Surgical History: Prostate surgery for a blockage (BPH). - Social History Smoking Status: Never Smoker Substance Use Type: None - Medications Home Medications: Home Medications Medication Instructions Recorded Confirmed Last Taken Type Colchicine [Colcrys] 0.6 mg PO PRN PRN 02/20/16 11/09/17 08/14/17 History Simvastatin [Zocor TAB] 40 mg PO QHS #30 tablet 06/15/17 11/09/17 11/08/17 Rx 40 mg allopurinoL [Allopurinol] 100 mg PO DAILY 11/09/17 11/09/17 11/08/17 History 100 mg hydrALAZINE [Apresoline TAB] 25 mg PO TID 11/09/17 11/09/17 11/06/17 History 25 mg ED Physical Exam - General Limitations: No Limitations General appearance: alert, in no apparent distress - Head Head exam: Present: atraumatic, normocephalic - Eye Eye exam: Present: normal appearance, EOMI - ENT ENT exam: Present: mucous membranes moist - Neck Neck exam: Present: normal inspection - Respiratory Respiratory exam: Present: normal lung sounds bilaterally. Absent: respiratory distress - Cardiovascular Cardiovascular Exam: Present: normal rhythm, tachycardia - GI/Abdominal GI/Abdominal exam: Present: soft. Absent: distended, tenderness - Extremities Exam Extremities exam: Present: normal inspection - Neurological Exam Neurological exam: Present: alert, oriented X3 - Psychiatric Psychiatric exam: Present: normal affect, normal mood - Skin Skin exam: Present: warm, dry, intact, normal color ED Course Vital Signs 11/28/19 11/28/19 11/28/19 11:34 11:36 11:43 Temperature 97.9 F Pulse Rate 129 H 128 H Respiratory 16 16 23 Rate Blood Pressure 134/95 Blood Pressure 139/100 [Right] O2 Sat by Pulse 100 Oximetry 11/28/19 11/28/19 13:35 14:20 Temperature Pulse Rate 123 H 128 H Respiratory 16 Rate Blood Pressure 142/100 Blood Pressure 122/89 [Right] O2 Sat by Pulse 93 Oximetry - Consultations Consultation #1: 11/28/19 15:31 Spoke w/ bowen Nunez/ Candace Noriega. She reviewed patient's records and there is no evidence of patient ever having an irregular heartbeat previously. This appears to be new onset a flutter. Patient will be admitted by hospitalist and cardiology will consult. Consultation #2: 11/28/19 15:40 Spoke with Mann Tariq, nephrology nurse practitioner for Dr. Manley. States they will consult while patient is admitted. ED Medical Decision Making - Lab Data Result diagrams: 11/28/19 12:28 11/28/19 12:28 - EKG Data -: EKG Interpreted by Me EKG shows normal: intervals, QRS complexes, ST-T waves Rate: tachycardia (rate 128) - EKG Data Interpretation: other (LAD, atrial flutter) - Radiology Data Radiology results: report reviewed, image reviewed Critical care attestation.: If time is entered above; I have spent that time in minutes in the direct care of this critically ill patient, excluding procedure time. ED Disposition Clinical Impression: New onset atrial flutter, ESRD (end stage renal disease) on dialysis Disposition: 09 OP ADMIT IP TO THIS HOSP Is pt being admited?: Yes Condition: Stable Referrals: PRIMARY CARE, [Primary Care Provider] - 3-5 Days Time of Disposition: 15:37
[2019-11-28 12:47] LABS: Basophils # (Auto) 0.1 K/mm3 (0.0-0.1); Basophils % (Auto) 1.1 % (0.0-1.8); Eosinophils # (Auto) 0.4 K/mm3 (0.0-0.4); Eosinophils % (Auto) 7.7 % (0.0-4.3); Hematocrit 34.2 % (35.5-45.6); Hemoglobin 11.1 gm/dl (11.8-15.2); Lymphocytes # (Auto) 0.5 K/mm3 (1.2-5.4); Mean Corpuscular HGB Conc 33 % (32-34); Mean Corpuscular Volume 94 fl (84-94); Monocytes # (Auto) 0.5 K/mm3 (0.0-0.8); Monocytes % (Auto) 10.1 % (0.0-7.3); Platelet Count 123 K/mm3 (140-440); Red Blood Count 3.65 M/mm3 (3.65-5.03); Red Cell Distribution Width 17.8 % (13.2-15.2)
[2019-11-28 12:58] LABS: INR 1.27 (0.87-1.13)
[2019-11-28 13:06] LABS: Calcium 9.5 mg/dL (8.4-10.2)
--- NOTE | 2019-11-28 13:34 | XRay Report ---
CHEST 1 VIEW INDICATION: palpitations. Known lymphoma. COMPARISON: 09/11/2019 FINDINGS: Support devices: None. Heart: Within normal limits. Pulmonary vasculature: Large central pulmonary arteries with size accentuated by less than optimal keith ng expansion. Lungs/Pleura: Multiple bilateral noncalcified lung nodules as seen on the last exam. The dominant nod ule is in the right upper lobe and it appears larger than on the last exam. Mild right basal subsegme ntal atelectasis. No pulmonary consolidation or pleural effusion. No pneumothorax. Additional findings: None. IMPRESSION: 1. No CHF or pneumonia. 2. Bilateral multi lobar pulmonary metastasis with enlargement of the dominant right upper lobe lung nodule since the last exam. Signer Name: Freddie Gonzalez MD Signed: 11/28/2019 1:30 PM Workstation Name: [id number]
[2019-11-28] MEDS ORDERED: SODIUM CHLORIDE 0.9% 500 ML 500 ML IV ONE (13:43)
[2019-11-28] MEDS ORDERED: METOPROLOL TARTRATE 5 MG/5 ML INJ IV ONE (13:43)
--- NOTE | 2019-11-28 15:48 | Consultation ---
History of Present Illness Consult date: 11/28/19 Requesting physician: ORAL HERNANDEZ Consult reason: arrhythmia History of present illness: The pt is a 74-year-old male with a past medical history of ESRD (MWF), metastatic renal cell cancer currently on immunotherapy (followed by Dr. De La Torre), NICMP with currently normalized EF. He is followed in our office by Dr. Mendiola. He presented for evaluation of tachycardia. Pt went for hemodialysis as usual on Tuesday and was noted to be tachycardic with HR in 120s. He received HD as usual and HR returned to baseline once he returned home. Today, he presented for HD as usual and was found to be tachycardic again with HR 120s and was referred to ED for further eval/management. Pt did not receive dialysis today. ECG and telemetry shows apparent atrial flutter with 2:1 conduction, HR 120s - 130s. Pt was given IV lopressor in ED with no change in HR or rhythm. On evaluation, pt denies any current complaints. He denies any occurrence of chest pain, palpitations, n/v, diaphoresis, dizziness or syncope. He denies any known prior history of AFib or AFlutter. Echo done 10/23/2019 showed EF 55-60%, grade 2 diastolic dysfunction, mild AR and MR, mod TR, RVSP 59mmHg. Past History Past Medical History: ESRD, other (as per HPI) Medications and Allergies Allergies Allergy/AdvReac Type Severity Reaction Status Date / Time aspirin AdvReac Hives Verified 11/28/19 11:38 Home Medications Medication Instructions Recorded Confirmed Last Taken Type Colchicine [Colcrys] 0.6 mg PO PRN PRN 02/20/16 11/09/17 08/14/17 History Simvastatin [Zocor TAB] 40 mg PO QHS #30 tablet 06/15/17 11/09/17 11/08/17 Rx 40 mg allopurinoL [Allopurinol] 100 mg PO DAILY 11/09/17 11/09/17 11/08/17 History 100 mg hydrALAZINE [Apresoline TAB] 25 mg PO TID 11/09/17 11/09/17 11/06/17 History 25 mg Active Meds: Active Medications Amiodarone HCl 150 mg/ (Dextrose) 100 mls @ 600 mls/hr IV ONCE ONE Stop: 11/28/19 15:56 Amiodarone HCl 900 mg/ (Dextrose) 500 mls @ 33.333 mls/hr IV DIRECT MORRIS; Protocol Review of Systems Constitutional: no weight loss, no weight gain, no fever, no chills, no sweats Ears, nose, mouth and throat: no ear pain, no nose pain, no sinus pressure, no sinus pain Cardiovascular: no chest pain, no orthopnea, no palpitations, no rapid/irregular heart beat, no edema, no syncope, no lightheadedness, no shortness of breath, no dyspnea on exertion, no leg edema Respiratory: no cough, no shortness of breath, no dyspnea on exertion, no congestion, no wheezing, no pain on inspiration Gastrointestinal: no abdominal pain, no nausea, no vomiting, no diarrhea, no constipation, no change in bowel habits Genitourinary Male: no dysuria, no hematuria, no flank pain, no discharge, no urinary frequency, no urinary hesitancy Musculoskeletal: no neck stiffness, no neck pain, no shooting arm pain, no arm numbness/tingling, no low back pain Integumentary: no rash, no pruritis, no redness, no sores, no wounds Neurological: no head injury, no paralysis, no weakness, no parathesias, no numbness, no tingling, no seizures, no syncope Psychiatric: no anxiety Endocrine: no cold intolerance, no heat intolerance Hematologic/Lymphatic: no easy bruising, no easy bleeding Allergic/Immunologic: no urticaria Physical Examination Vital Signs Temp Pulse Resp BP 97.9 F 129 H 16 134/95 11/28/19 11:34 11/28/19 11:34 11/28/19 11:34 11/28/19 11:34 General appearance: no acute distress HEENT: Positive: PERRL, Normocephaly, Mucus Membranes Moist Neck: Positive: neck supple, trachea midline Cardiac: Positive: irregularly irregular, S1/S2, Tachycardia Lungs: Positive: Decreased Breath Sounds Neuro: Positive: Grossly Intact Abdomen: Negative: Tender Skin: Negative: Rash Musculoskeletal: No Pain Extremities: Absent: edema Results 11/28/19 12:28 11/28/19 12:28 Coagulation 11/28/19 Range/Units 12:28 PT 16.1 H (12.2-14.9) Sec. INR 1.27 H (0.87-1.13) APTT 33.0 (24.2-36.6) Sec. CBC 11/28/19 Range/Units 12:28 WBC 5.0 (4.5-11.0) K/mm3 RBC 3.65 (3.65-5.03) M/mm3 Hgb 11.1 L (11.8-15.2) gm/dl Hct 34.2 L (35.5-45.6) % Plt Count 123 L (140-440) K/mm3 Lymph # 0.5 L (1.2-5.4) K/mm3 Mcnairy # 0.5 (0.0-0.8) K/mm3 Eos # 0.4 (0.0-0.4) K/mm3 Baso # 0.1 (0.0-0.1) K/mm3 Comprehensive Metabolic Panel 11/28/19 Range/Units 12:28 Sodium 141 (137-145) mmol/L Potassium 4.3 (3.6-5.0) mmol/L Chloride 91.7 L (98-107) mmol/L Carbon Dioxide 24 (22-30) mmol/L BUN 54 H (9-20) mg/dL Creatinine 10.1 H (0.8-1.5) mg/dL Glucose 85 (75-100) mg/dL Calcium 9.5 (8.4-10.2) mg/dL - Imaging and Cardiology Echo: report reviewed (10/23/2019 showed EF 55-60%, grade 2 diastolic dys function, mild AR and MR, mod TR, RVSP 59mmHg. ) EKG: report reviewed, image reviewed EKG interpretations - Telemetry EKG Rhythm: Atrial Flutter - EKG Supraventricular dysrhythmia: atrial flutter Assessment and Plan Pt presents with apparent new onset atrial flutter with 2:1 conduction, HR 120s - 130s. Optimize HR - initiate IV amio. Initiate heparin gtt and consider conversion to OAC prior to discharge - pt's reports that pt falls frequently and thus he may be a poor candidate for halfway systemic AC. Obtain thyroid profile and serum Mg. Further recs to follow per hospital course. The patient has been seen in conjunction with Dr. CLOVER Mora who agrees with the assessment and plan of care. - Patient Problems (1) New onset atrial flutter Current Visit: Yes Status: Acute (2) ESRD (end stage renal disease) on dialysis Current Visit: Yes Status: Chronic (3) Renal cell cancer Current Visit: Yes Status: Chronic
[2019-11-28] MEDS ORDERED: AMIODARONE 150 MG in DEXTROSE 5% IN WATER 97 ML IV ONE (16:00)
[2019-11-28] MEDS ORDERED: HEPARIN 10,000 UNITS/10 ML VIAL IV ONE (16:03)
[2019-11-28] MEDS ORDERED: HEPARIN/ 0.45% NACL DRIP 25,000 UNIT/500 ML BAG IV SCH (17:00)
[2019-11-28] MEDS ORDERED: AMIODARONE 900 MG in DEXTROSE 5% IN WATER 482 ML IV SCH (17:00)
--- NOTE | 2019-11-28 17:52 | Consultation ---
History of Present Illness - Reason for Consult Consult date: 11/28/19 end stage renal disease Requesting physician: ORAL HERNANDEZ - History of Present Illness This is a 74 y/o M with PMH of ESRD on HD, metastatic renal cancer s/p right nephrectomy, on immunotherapy every 3 weeks (had treatment last week), gout, and anemia who presented to [facility] from dialysis due to tachycardia and feeling weak. Pt was tachycardic with HR in 120s on Tuesday during HD, pt and wanted to hold off on going to hospital after HD, but would go if he remained tachycardic. states his HR improved later that day. Pt was at his outpatient HD center today, HR was in 130s prior to starting HD. Pt was transported to [facility] via EMS for further evaluation and didn't undergo HD today. states pt is followed by Dr Mendiola, saw him in the office a couple of weeks ago and visit went well. Pt evaluated in ED. Cardiology consulted, EKG Atrial flutter, pt will be admitted for further management. Pt denies chest pain, shortness of breath, nausea, vomiting, dizziness, abdominal pain, or diarrhea. Pt states he had some constipation, although, last BM was yesterday. We were consulted to evaluate this pt who has ESRD. Past History Past Medical History: anemia, ESRD, other (as per HPI) Medications and Allergies Allergies Allergy/AdvReac Type Severity Reaction Status Date / Time aspirin AdvReac Hives Verified 11/28/19 11:38 Home Medications Medication Instructions Recorded Confirmed Last Taken Type Colchicine [Colcrys] 0.6 mg PO PRN PRN 02/20/16 11/09/17 08/14/17 History Simvastatin [Zocor TAB] 40 mg PO QHS #30 tablet 06/15/17 11/09/17 11/08/17 Rx 40 mg allopurinoL [Allopurinol] 100 mg PO DAILY 11/09/17 11/09/17 11/08/17 History 100 mg hydrALAZINE [Apresoline TAB] 25 mg PO TID 11/09/17 11/09/17 11/06/17 History 25 mg Active Meds: Active Medications Amiodarone HCl 900 mg/ (Dextrose) 500 mls @ 33.333 mls/hr IV DIRECT MORRIS; Protocol Heparin Sodium/Sodium Chloride (Heparin/ 0.45% Nacl-25,000 Unit/500 Ml) 25,000 unit in 500 mls @ 21 mls/hr IV TITR MORRIS; Protocol Last Admin: 11/28/19 16:30 Dose: 1,050 units/hr, 21 mls/hr Documented by: Review of Systems Constitutional: fatigue, weakness Cardiovascular: no chest pain, no shortness of breath Respiratory: no shortness of breath, no dyspnea on exertion Gastrointestinal: constipation, no abdominal pain, no nausea, no vomiting, no diarrhea, no hematemesis Integumentary: no wounds Neurological: weakness Exam - Vital Signs Vital signs: Vital Signs Temp Pulse Resp BP 97.9 F 129 H 16 134/95 11/28/19 11:34 11/28/19 11:34 11/28/19 11:34 11/28/19 11:34 - General Appearance General appearance: other (awake) EENT: ATNC Neck: Present: neck supple Respiratory: Decreased Breath Sounds Heart: irregularly irregular, tachycardia, other (ACCESS: Left AVF + thrill and bruit noted) Gastrointestinal: Present: normoactive bowel sounds. Absent: tenderness Integumentary: warm and dry Neurologic: other (awake, alert, oriented to person, place, and time, follows simple commands) Musculoskeletal: Present: other (no edema to BLE) Psychiatric: cooperative Results - Lab Results 11/28/19 12:28 11/28/19 12:28 Most recent lab results Calcium 9.5 mg/dL (8.4-10.2) 11/28/19 12:28 Assessment and Plan Atrial Flutter - new onset ESRD on HD Anemia of ESRD Metastatic Renal Cancer on immunotherapy, hx of right nephrectomy Essential Hypertension Plan: -Labs reviewed -No acute indication for HD today -HD tomorrow for gentle UF and clearance -Assess need for HD on daily basis -Cardiology consulted for Atrial Flutter, start amiodarone and heparin drips, f/u recs -Renally dose meds -This pt undergoes outpatient HD at [facility] every MWF -Renal plan d/w Dr Manley
[2019-11-28] MEDS ORDERED: SODIUM CHLORIDE 0.9% 100 ML IV PRN (18:03)
[2019-11-28 18:14] LABS: Hematocrit 35.8 % (35.5-45.6); Hemoglobin 11.6 gm/dl (11.8-15.2)
[2019-11-28 18:23] LABS: INR 1.41 (0.87-1.13)
[2019-11-28 19:39] LABS: Partial Thromboplastin Time 100.3 Sec. (24.2-36.6)
[2019-11-28] MEDS ORDERED: METOCLOPRAMIDE 10 MG/2 ML INJ IV PRN (22:23)
[2019-11-28] MEDS ORDERED: HYDROmorphone 1 MG/1 ML INJ IV PRN (22:23)
[2019-11-28] MEDS ORDERED: oxyCODONE /ACETAMINOPHEN 5-325MG TAB PO PRN (22:23)
[2019-11-28] MEDS ORDERED: ONDANSETRON 4 MG/2 ML INJ IV PRN (22:23)
[2019-11-28] MEDS ORDERED: ACETAMINOPHEN 325 MG TAB PO PRN (22:23)
[2019-11-28] MEDS ORDERED: HEPARIN 5,000 UNIT/1 ML VIAL SUB-Q SCH (22:30)
[2019-11-28] MEDS ORDERED: hydrALAZINE 25 MG TAB PO SCH (23:00)
[2019-11-29] MEDS ORDERED: EPINEPHrine 1:10,000 1 MG/10 ML SYRINGE ONE ×2 (05:45→06:50)
[2019-11-29] MEDS ORDERED: DEXTROSE 50% IN WATER (25GM) 50 ML SYRINGE IV ONE (05:45)
--- NOTE | 2019-11-29 06:10 | Event Note ---
Date: 11/29/19 I was called to the floor for a Code BLue. Upon my arrival to the room patient was receiving CPR and was without a pulse. Patient is being oxygenated via bag valve mask ventilation prior to my arrival. The hospitalist Dr. Ramsay was running the code. Upon arrival I used a MAC 480 ET tube. Patient was intubated on the second attempt as suction was not functioning ET tube was confirmed with colorimetric change on CO2 detector as well as bilateral breath sounds.
[2019-11-29] MEDS ORDERED: MIDAZOLAM 2 MG/2 ML INJ IV PRN (06:11)
[2019-11-29] MEDS ORDERED: LIP THERAPY VASELINE TP PRN (06:11)
[2019-11-29] MEDS ORDERED: MINERAL OIL/PETROLATUM, WHITE OPHTH OINT 3.5 GM OU PRN (06:11)
--- NOTE | 2019-11-29 06:14 | Event Note ---
CODE BLUE Patient became bradycardic down to the 28, then went into PEA ACLS protocol was initiated, please refer to the sheet for details Several rounds of epi was given, bicarb, there was ROSC Patient will be transferred to the ICU, check labs, consult critical care Addendum Patient coded again, ACLS protocol initiated, there was ROSC with initiation of ACLS protocol Refer to the code sheet for details Start blood pressure of 85, give gentle dose of IV fluid Start Levophed drip if needed Patient also his pulse again, became bradycardic and then went into PEA, after 2 rounds of epi, there was ROSC Please follow labs, refer to code sheet for detail
[2019-11-29] MEDS ORDERED: NORepinephrine/NS 4 MG-250 ML 4 MG/250 ML BAG IV ONE (06:39)
[2019-11-29 06:48] LABS: ABG Base Excess -17.1 mmol/L (-2.0-3.0); ABG HCO3 14.5 mmol/L (20.0-26.0); ABG Methemoglobin 0.7 % (0.0-1.5); ABG Oxygen Saturation 96.8 % (95.0-99.0); ABG PCO2 63.4 mm Hg
[2019-11-29] MEDS ORDERED: NORepinephrine/NS 4 MG-250 ML 4 MG/250 ML BAG IV SCH (06:50)
[2019-11-29] MEDS ORDERED: EPINEPHrine 30 MG/30 ML INJ IV ONE (06:50)
[2019-11-29] MEDS ORDERED: SODIUM CHLORIDE 0.9% 1000 ML 250 ML IV ONE (06:50)
[2019-11-29 07:00] VITALS: BP 105/59
[2019-11-29] MEDS ORDERED: MIDAZOLAM 100 MG in SODIUM CHLORIDE 0.9% 80 ML IV SCH (07:00)
[2019-11-29 07:06] LABS: ABG PH 6.978 pH Units (7.350-7.450)
[2019-11-29 07:40] LABS: Creatine Kinase MB 3.8 ng/mL (0.0-4.0)
--- NOTE | 2019-11-29 07:40 | Event Note ---
Date: 11/29/19 Responded to Code Blue, PEA arrest, initiated CPR per ACLS protocol Received 2 rounds of epi, with ROSC This is patient's fourth code. Very poor prognosis Discussed with patient's of patient's condition , poor prognosis And CODE STATUS, Answered all her questions. requested DNR status
[2019-11-29 07:41] LABS: Calcium 8.5 mg/dL (8.4-10.2)
[2019-11-29] MEDS ORDERED: DEXTROSE 50% IN WATER (25GM) 50 ML VIAL IV STA (07:49)
--- NOTE | 2019-11-29 07:56 | Death Note ---
Note Date of : 11/29/19 Time of : 07:50 Time Pronounced: 07:50
--- NOTE | 2019-11-29 07:56 | Event Note ---
Date: 11/29/19 patient pronounced 07:50
[2019-11-29 07:59] LABS: Hematocrit 50.4 % (35.5-45.6); Hemoglobin 14.9 gm/dl (11.8-15.2); Mean Corpuscular HGB Conc 30 % (32-34); Mean Corpuscular Volume 105 fl (84-94); Red Cell Distribution Width 19.9 % (13.2-15.2)
--- NOTE | 2019-11-29 08:00 | History and Physical Report ---
History of Present Illness Date of examination: 11/28/19 Date of admission: 11/29/19 06:05 Chief complaint: Palpitations Few hrs History of present illness: 74-year-old male with a past medical history of ESRD (MWF), metastatic renal cell cancer currently on immunotherapy (followed by Dr. De La Torre), JANIE with currently normalized EF. He presented for evaluation of tachycardia. Pt went for hemodialysis as usual on Tuesday and was noted to be tachycardic with HR in 120s. He received HD as usual and HR returned to baseline once he returned home. Today, he presented for HD as usual and was found to be tachycardic again with HR 120s and was referred to ED for further eval/management. Pt did not receive dialysis today. ECG and telemetry shows apparent atrial flutter with 2:1 conduction, HR 120s - 130s. Pt was given IV lopressor in ED with no change in HR or rhythm. On evaluation, pt denies any current complaints. He denies any occurrence of chest pain, palpitations, n/v, diaphoresis, dizziness or syncope. He denies any known prior history of AFib or AFlutter. Echo done 10/23/2019 showed EF 55-60%, grade 2 diastolic dysfunction, mild AR and MR, mod TR, RVSP 59mmHg. Past History Past Medical History: anemia, ESRD, hypertension, hyperlipidemia, other (as per HPI) Past Surgical History: No surgical history Social history: lives with family, full code Family history: diabetes, hypertension Medications and Allergies Allergies Allergy/AdvReac Type Severity Reaction Status Date / Time aspirin AdvReac Hives Verified 11/28/19 11:38 Home Medications Medication Instructions Recorded Confirmed Last Taken Type Colchicine [Colcrys] 0.6 mg PO PRN PRN 02/20/16 11/09/17 08/14/17 History Simvastatin [Zocor TAB] 40 mg PO QHS #30 tablet 06/15/17 11/09/17 11/08/17 Rx 40 mg allopurinoL [Allopurinol] 100 mg PO DAILY 11/09/17 11/09/17 11/08/17 History 100 mg hydrALAZINE [Apresoline TAB] 25 mg PO TID 11/09/17 11/09/17 11/06/17 History 25 mg Active Meds: Active Medications Acetaminophen (Tylenol) 650 mg PO Q4H PRN PRN Reason: Pain MILD(1-3)/Fever >100.5/ROJAS Allopurinol (Zyloprim) [address] [facility] Famotidine (Pepcid) [address] [facility] Heparin Sodium (Porcine) (Heparin) 5,000 unit SUB-Q Q12HR [facility] Last Admin: 11/28/19 22:40 Dose: Not Given Documented by: Hydralazine HCl (Apresoline) [address] [facility] Last Admin: 11/29/19 01:12 Dose: 25 mg Documented by: Hydromorphone HCl (Dilaudid) 0.5 mg IV Q3H PRN PRN Reason: Pain , Severe (7-10) Hydrophilic Ointment (Vaseline Lip Therapy) 1 applic TP Q2HR PRN PRN Reason: Dry Lips Sodium Chloride (Nacl 0.9%) 100 mls @ 999 mls/hr IV ADDI PRN PRN Reason: Hypotension Midazolam HCl 100 mg/ Sodium (Chloride) 100 mls @ 2 mls/hr IV TITR MORRIS; Prot ocol Metoclopramide HCl (Reglan) 5 mg IV Q6H PRN PRN Reason: Nausea And Vomiting Midazolam HCl (Versed) 2 mg IV Q10MIN PRN PRN Reason: Sedation Multi-Ingred Cream/Lotion/Oil/Oint (Artificial Tears Ophth Oint) 1 applic OU Q4HR PRN PRN Reason: Dry Eye(s) Ondansetron HCl (Zofran) 4 mg IV Q8H PRN PRN Reason: Nausea And Vomiting Oxycodone/Acetaminophen (Percocet 5/325) 1 tab PO Q6H PRN PRN Reason: Pain, Moderate (4-6) Pravastatin Sodium (Pravachol) [address] [facility] Sodium Chloride (Sodium Chloride Flush Syringe 10 Ml) [address] [facility] Sodium Chloride (Sodium Chloride Flush Syringe 10 Ml) 10 ml IV PRN PRN PRN Reason: LINE FLUSH Review of Systems All systems: negative Constitutional: no weight loss, no weight gain, no fever, no chills Cardiovascular: palpitations, shortness of breath, dyspnea on exertion, no chest pain, no orthopnea Gastrointestinal: no abdominal pain, no nausea, no vomiting Genitourinary Male: no dysuria, no hematuria, no flank pain, no discharge Rectal: no pain Musculoskeletal: no neck stiffness, no neck pain, no shooting arm pain, no arm numbness/tingling Integumentary: no rash, no pruritis, no redness Neurological: no head injury, no transient paralysis, no paralysis, no seizures, no syncope Psychiatric: no anxiety Endocrine: no cold intolerance, no heat intolerance, no polyphagia, no excessive thirst Hematologic/Lymphatic: no easy bruising, no easy bleeding Allergic/Immunologic: no urticaria, no allergic rhinitis, no wheezing Exam - Constitutional Vitals: Temp Pulse Resp BP Pulse Ox 98.0 F 111 H 28 H 105/59 98 11/29/19 05:27 11/29/19 05:27 11/29/19 05:27 11/29/19 05:27 11/29/19 05:27 General appearance: Present: no acute distress, well-nourished - EENT Eyes: Present: PERRL ENT: hearing intact, clear oral mucosa - Neck Neck: Present: supple, normal ROM - Respiratory Respiratory effort: normal Respiratory: bilateral: CTA - Cardiovascular Heart Sounds: Present: S1 & S2. Absent: rub, click - Extremities Extremities: pulses symmetrical, No edema Peripheral Pulses: within normal limits - Abdominal General gastrointestinal: Present: soft, non-tender, non-distended, normal bowel sounds Male genitourinary: Present: normal - Integumentary Integumentary: Present: clear, warm, dry - Musculoskeletal Musculoskeletal: gait normal, strength equal bilaterally - Psychiatric Psychiatric: appropriate mood/affect, intact judgment & insight - Neurologic Neurologic: CNII-XII intact, moves all extremities DONAVAN score - Donavan Score Age > 65: (1) Yes Aspirin use within the Past 7 Days: (1) Yes 3 or more CAD Risk Factors: (1) Yes 2 or more Angina events in past 24 hrs: (0) No Known CAD with more than 50% Stenosis: (0) No Elevated Cardiac Markers: (0) No ST Deviation Greater than 0.5mm: (0) No DONAVAN Score: 3 Results - Labs CBC & Chem 7: 11/29/19 07:10 11/29/19 07:10 Labs: Laboratory Last Values WBC 9.7 K/mm3 (4.5-11.0) 11/29/19 07:10 RBC 4.80 M/mm3 (3.65-5.03) 11/29/19 07:10 Hgb 14.9 gm/dl (11.8-15.2) D 11/29/19 07:10 Hct 50.4 % (35.5-45.6) H D 11/29/19 07:10 MCV 105 fl (84-94) H 11/29/19 07:10 MCH 31 pg (28-32) 11/29/19 07:10 MCHC 30 % (32-34) L 11/29/19 07:10 RDW 19.9 % (13.2-15.2) H 11/29/19 07:10 Plt Count 135 K/mm3 (140-440) L 11/28/19 17:27 Lymph % (Auto) Tap Grinder 11/29/19 07:10 Towner % (Auto) Tap Grinder 11/29/19 07:10 Eos % (Auto) Tap Grinder 11/29/19 07:10 Baso % (Auto) Tap Grinder 11/29/19 07:10 Lymph # Tap Grinder 11/29/19 07:10 Towner # Tap Grinder 11/29/19 07:10 Eos # Tap Grinder 11/29/19 07:10 Baso # Tap Grinder 11/29/19 07:10 Seg Neutrophils % Tap Grinder 11/29/19 07:10 Seg Neutrophils # Tap Grinder 11/29/19 07:10 PT 17.5 Sec. (12.2-14.9) H 11/28/19 17:27 INR 1.41 (0.87-1.13) H 11/28/19 17:27 APTT 100.3 Sec. (24.2-36.6) H* 11/28/19 17:27 Heparin Anti-Xa Level 0.10 U.I./ml (0.3-0.7) L 11/29/19 00:19 ABG pH 6.978 pH Units (7.350-7.450) L* 11/29/19 06:40 ABG pCO2 63.4 mm Hg 11/29/19 06:40 ABG pO2 131.0 mm Hg (80.0-90.0) H 11/29/19 06:40 ABG HCO3 14.5 mmol/L (20.0-26.0) L 11/29/19 06:40 ABG O2 Saturation 96.8 % (95.0-99.0) 11/29/19 06:40 ABG O2 Content 15.4 (0.0-44) 11/29/19 06:40 ABG Base Excess -17.1 mmol/L (-2.0-3.0) L 11/29/19 06:40 ABG Hemoglobin 11.5 gm/dl (14.0-18.0) L 11/29/19 06:40 ABG Carboxyhemoglobin 2.1 % (0.0-5.0) 11/29/19 06:40 ABG Methemoglobin 0.7 % (0.0-1.5) 11/29/19 06:40 Oxyhemoglobin 94.2 % (95.0-99.0) L 11/29/19 06:40 FiO2 100 % 11/29/19 06:40 Sodium 142 mmol/L (137-145) 11/29/19 07:10 Potassium 6.3 mmol/L (3.6-5.0) H* D 11/29/19 07:10 Chloride 94.8 mmol/L (98-107) L 11/29/19 07:10 Carbon Dioxide 11 mmol/L (22-30) L D 11/29/19 07:10 Anion Gap 43 mmol/L 11/29/19 07:10 BUN 61 mg/dL (9-20) H 11/29/19 07:10 Creatinine 10.1 mg/dL (0.8-1.5) H 11/29/19 07:10 Estimated GFR 5 ml/min 11/29/19 07:10 BUN/Creatinine Ratio 6 % 11/29/19 07:10 Glucose 106 mg/dL (75-100) H 11/29/19 07:10 POC Glucose 73 (70-105) 11/29/19 07:33 Hemoglobin A1c 4.5 % (4-6) 11/28/19 17:27 Calcium 8.5 mg/dL (8.4-10.2) 11/29/19 07:10 Phosphorus 10.30 mg/dL (2.5-4.5) H 11/29/19 07:10 Magnesium 2.00 mg/dL (1.7-2.3) 11/28/19 17:27 Total Creatine Kinase 223 units/L (55-170) H 11/29/19 07:10 CK-MB (CK-2) 3.8 ng/mL (0.0-4.0) 11/29/19 07:10 CK-MB (CK-2) Rel Index 1.7 (0-4) 11/29/19 07:10 Troponin T 0.287 ng/mL (0.00-0.029) H* 11/29/19 07:10 TSH 6.860 mlU/mL (0.270-4.200) H 11/28/19 15:41 Short CBC 11/28/19 11/28/19 11/29/19 Range/Units 12:28 17: 07:10 WBC 5.0 9.7 (4.5-11.0) K/mm3 Hgb 11.1 L 11.6 L 14.9 D (11.8-15.2) gm/dl Hct 34.2 L 35.8 50.4 H D (35.5-45.6) % Plt Count 123 L 135 L (140-440) K/mm3 [facility] 11/28/19 11/29/19 12:28 07:10 Sodium 141 142 Potassium 4.3 6.3 H* D Chloride 91.7 L 94.8 L Carbon Dioxide 24 11 L D BUN 54 H 61 H Creatinine 10.1 H 10.1 H Glucose 85 106 H Calcium 9.5 8.5 Cardiac Enzymes 11/29/19 Range/Units 07:10 Total Creatine Kinase 223 H (55-170) units/L CK-MB (CK-2) 3.8 (0.0-4.0) ng/mL Troponin T 0.287 H* (0.00-0.029) ng/mL Short CBC 11/28/19 11/28/19 11/29/19 Range/Units 12:28 17: 07:10 WBC 5.0 9.7 (4.5-11.0) K/mm3 Hgb 11.1 L 11.6 L 14.9 D (11.8-15.2) gm/dl Hct 34.2 L 35.8 50.4 H D (35.5-45.6) % Plt Count 123 L 135 L (140-440) K/mm3 [facility] 11/28/19 11/29/19 12:28 07:10 Sodium 141 142 Potassium 4.3 6.3 H* D Chloride 91.7 L 94.8 L Carbon Dioxide 24 11 L D BUN 54 H 61 H Creatinine 10.1 H 10.1 H Glucose 85 106 H Calcium 9.5 8.5 Cardiac Enzymes 11/29/19 Range/Units 07:10 Total Creatine Kinase 223 H (55-170) units/L CK-MB (CK-2) 3.8 (0.0-4.0) ng/mL Troponin T 0.287 H* (0.00-0.029) ng/mL - Imaging and Cardiology EKG: report reviewed (flutter rate 120's) Chest x-ray: report reviewed Imaging and Cardiology: CXR IMPRESSION: 1. No CHF or pneumonia. 2. Bilateral multi lobar pulmonary metastasis with enlargement of the dominant right upper lobe lung nodule since the last exam. Signer Name: Freddie Gonzalez MD Assessment and Plan Advance Directives: Yes (Full code) VTE prophylaxis?: Chemical Plan of care discussed with patient/family: Yes - Patient Problems (1) New onset atrial flutter Current Visit: Yes Status: Acute Plan to address problem: On Amiodarone drip Cardiology consulted Cardizem po initiated (2) ESRD (end stage renal disease) on dialysis Current Visit: Yes Status: Chronic Plan to address problem: Cpm[facility] Hemodialysis (3) Renal cell cancer Current Visit: Yes Status: Chronic Qualifiers: Laterality: unspecified laterality Qualified Code(s): C64.9 - Malignant neoplasm of unspecified kidney, except renal pelvis Plan to address problem: With pulm metastases Oncology consult [facility] (4) HTN (hypertension) Current Visit: No Status: Chronic Qualifiers: Hypertension type: essential hypertension Qualified Code(s): I10 - Essential (primary) hypertension Plan to address problem: Cont antihypertensives Add cardizem cd 120 po qd (5) HLD (hyperlipidemia) Current Visit: Yes Status: Chronic Qualifiers: Hyperlipidemia type: mixed hyperlipidemia Qualified Code(s): E78.2 - Mixed hyperlipidemia Plan to address problem: On statins (6) DVT prophylaxis Current Visit: No Status: Acute (7) Advanced care planning/counseling discussion Current Visit: Yes Status: Acute Plan to address problem: Wants full code
[2019-11-29] MEDS ORDERED: SODIUM CHLORIDE 0.9% 100 ML IV PRN (08:15)
--- NOTE | 2019-11-29 08:31 | Death Summary ---
Summary - Providers Date of service: 11/29/19 Consults: 11/28/19 15:31 Consult to Physician [CONS] Stat Comment: DR MARY Hong/RICKY @[id number] Consulting Provider: RICKY JACOBO Physician Instructions: Reason For Exam: tachycardia 11/28/19 15:38 Consult to Physician [CONS] Stat Comment: Consulting Provider: SUSAN GUNDERSON Physician Instructions: Reason For Exam: ESRD 11/29/19 04:09 Consult to Wound/ET Nurse [CONS] Routine Reason For Exam: wound eval - wart at right ear and genital warts 11/29/19 06:11 Consult to Dietitian/Nutrition [CONS] Routine Physician Instructions: Reason For Exam: Reason for Consult: Evaluate nutritional intake Consult to Physician [CONS] Routine Comment: Consulting Provider: VIPIN FU Physician Instructions: Reason For Exam: ccc Attending: EDWIN NORMAN - summary Date of admission: 11/29/19 06:05 Date of : 11/29/19
[2019-11-29 08:39] LABS: Chol/HDL Ratio 4.85 %
[2019-11-29] MEDS ORDERED: dilTIAZem CD 120 MG CAP PO SCH (10:00)
[2019-11-29] MEDS ORDERED: allopurinoL 100 MG TAB PO SCH (10:00)
[2019-11-29] MEDS ORDERED: FAMOTIDINE 20 MG TAB PO SCH (10:00)
[2019-11-29 11:14] LABS: Band Neutrophils # (Manual) 0.3 K/mm3; Basophils % (Manual) 0 % (0.0-1.8)
[2019-11-29 11:15] LABS: Total Cells Counted 100
[2019-11-29 11:17] LABS: Platelet Estimate Consistent w Auto
[2019-11-29 18:10] LABS: Platelet Count 51 K/mm3 (140-440)
[2019-11-29] MEDS ORDERED: PRAVASTATIN 80 MG TAB PO SCH (22:00)
--- NOTE | 2019-11-30 13:19 | XRay Report ---
CHEST 1 VIEW INDICATION: ETT placement. COMPARISON: One day prior. FINDINGS: Support devices: Endotracheal tube has been placed, the tip is at the reva, this should be withdraw n approximately 3-4 cm. Heart: Stable. Lungs/Pleura: Bilateral pulmonary metastases are again noted. There is mild diffuse bilateral airspac e disease which is new. IMPRESSION: 1. Endotracheal tube tip is at the reva, this should be withdrawn approximately 3-4 cm. 2. Mild diffuse bilateral airspace disease is new since the prior and could be due to pulmonary edema . Pulmonary metastatic lesions are stable. Signer Name: Saeed Proctor MD Signed: 11/29/2019 6:23 AM Workstation Name: [id number]
--- NOTE | 2019-11-30 13:19 | XRay Report ---
CHEST 1 VIEW 6:17 AM INDICATION: repeat ett placement. COMPARISON: Earlier the same day FINDINGS: Support devices: Endotracheal tube has been pulled back and is in satisfactory position. Heart: Stable. Lungs/Pleura: Unchanged. IMPRESSION: 1. Endotracheal tube is in satisfactory position. Signer Name: Saeed Proctor MD Signed: 11/29/2019 6:35 AM Workstation Name: [id number]
== END 2019-11-29 11:32 ==
LOC: ED 11:11 → 4A 15:39 → UNDOADMOB 15:39 → INTOOBSV 15:39 → 4A 20:58 → CC1 11-29 06:05
PROVIDERS: ADMIT Internal Medicine; ATTEND Internal Medicine
DX: C64.9 Malignant neoplasm of unspecified kidney, except renal pelvis (principal); I48.92 Unspecified atrial flutter; I12.0 Hypertensive chronic kidney disease with stage 5 chronic kidney disease or end stage renal disease; N18.6 End stage renal disease; E78.5 Hyperlipidemia, unspecified; D64.9 Anemia, unspecified; Z99.2 Dependence on renal dialysis; Z79.82 Long term (current) use of aspirin
CPT/HCPCS: 36415; 36600; 71045; 80048; 80061; 82550; 82553; 82803; 82962; 83036; 83735; 84100; 84443; 84484; 85007; 85014; 85018; 85025; 85049; 85520; 85610; 85730; 92950; 93005; 93010; 94002; 96374; 96375; 99285; G0378; J0171; J0282; J1644; J7040; J7060; J2250